=== PATIENT | male | born 1960 | race Caucasian/White ===

== ENCOUNTER 2019-10-19 12:45 | Outpatient (CLI) | payer BC ==
[2019-10-19 13:43] LABS: PARTIAL THROMBOPLASTIN TIME 25 SECONDS (22-32)
[2019-10-19 15:06] LABS: PLATELET FUNCTION (ADP) 98 SECONDS (63-104)
== END 2019-10-19 23:59 | disposition home or self-care (01) ==
LOC: LAB 12:45
PROVIDERS: ATTEND Otolaryngology
DX: J32.0 Chronic maxillary sinusitis (principal); R04.0 Epistaxis
CPT/HCPCS: 36415; 85576; 85610; 85730

== ENCOUNTER 2020-02-13 06:12 | Day surgery (SDC) | payer BC ==
[2020-02-06 14:29] LABS: BASOPHILS % (AUTO) 0.5 % (0-1); EOSINOPHILS # (AUTO) 0.3 X10'3 (0-0.9); EOSINOPHILS % (AUTO) 4.1 % (0-6); LYMPHOCYTES # (AUTO) 2.2 X10'3 (1.1-4.8); LYMPHOCYTES % (AUTO) 32.3 % (21-51); MEAN CORPUSCULAR HEMOGLOBIN 31.5 PG (27.0-31.0); MEAN CORPUSCULAR HGB CONC 33.8 g/dL (33.0-36.5); MEAN CORPUSCULAR VOLUME 93.3 FL (78-98); MEAN PLATELET VOLUME 8.4 FL (7.4-10.4); MONOCYTES # (AUTO) 0.5 X10'3 (0-0.9); MONOCYTES % (AUTO) 7.9 % (2-12); NEUTROPHILS # (AUTO) 3.7 X10'3 (1.8-7.7); NEUTROPHILS % (AUTO) 55.2 % (42-75); PRE OP HEMOGLOBIN 14.5 g/dL (14.0-17.9); PRE OP PLATELET COUNT 278 X10'3 (140-440); RED BLOOD COUNT 4.61 X10'6 (4.70-6.10)
[2020-02-06 14:38] LABS: PRE OP PROTIME 10.3 SECONDS (9.0-12.0)
[2020-02-06 14:43] LABS: ALBUMIN 4.2 G/DL (3.4-5.0); ALBUMIN/GLOBULIN RATIO 1.2 (1.1-1.5); ALKALINE PHOSPHATASE 62 IU/L (46-116); BLOOD UREA NITROGEN 10 MG/DL (7-18); BUN/CREATININE RATIO 9.8 (5.4-32.0); CALCIUM 9.2 MG/DL (8.5-10.1); CHLORIDE 106 MMOL/L (99-107); CREATININE 1.02 MG/DL (0.60-1.10); PRE OP ALT 33 U/L (30-65); PRE OP ANION GAP 5 (8-16); PRE OP AST 24 U/L (10-37); PRE OP BILIRUB, TOTAL 0.6 MG/DL (0.0-1.0); PRE OP GLUCOSE 87 MG/DL (70-104); PRE OP POTASSIUM 4.1 MMOL/L (3.4-5.1); PRE OP SODIUM 142 MMOL/L (135-145); TOTAL PROTEIN 7.6 G/DL (6.4-8.2); eGFR 74 ML/MIN
[2020-02-13] VITALS (9 sets, daily range): BP systolic 109–123; BP diastolic 70–89
[~2020-02-13] VITALS: Ht 162.6 cm; Wt 79.0 kg
[~2020-02-13 06:12] MED LIST: ALBU90AE2; DOCUMENT DATE & TIME OF BETA-BLOCKER PO ONE; DULO30CA52 PO; GABA300C PO; GALC120P IM; METO-384 PO; SUMA6CAR2 IM; TRAM50TA2 PO; famotidine 20mg tablet PO ONE; oxymetazoline 15 ML nasal spray NS ONE; ringers solution, lacted 1,000 ML IV SCH
--- NOTE | 2020-02-13 06:50 | NUR ---
PT STATES HE HAS HAD EPISODES OF DIZZINESS OVER THE LAST 3 WEEKS WITH A FALL AT HOME LAST NIGHT, DENIES ANY INJURY FROM FALL OR LOSS OF CONSCIOUSNESS. STATES ALSO FELL IN HIS OFFICE A FEW DAYS AGO. STATES HX OF DIZZINESS IN THE PAST R/T CHEMO AND OTHER MEDICATIONS. DR CARDONA AND DR WILD AWARE Addendum: 02/13/20 at 0822 by Leandra Salazar RN Amended: Links added.
[2020-02-13] MEDS ORDERED: mupirocin 2% ointment 22GM ONE (07:02)
[2020-02-13] MEDS ORDERED: cocaine 4% topical solution 4ml bottle ONE (07:02)
[2020-02-13] MEDS ORDERED: cefTAZidime 1gm inj ONE (07:02)
[2020-02-13] MEDS ORDERED: methylPREDNISolone acetate 80mg/ml inj**IM only ONE (07:02)
[2020-02-13] MEDS ORDERED: LIDOcaine 1% W/epiNEPHrine 1:100,000 20ml vial ONE (07:02)
[2020-02-13] MEDS ORDERED: oxymetazoline 15 ML nasal spray NS ONE (07:03)
[2020-02-13] MEDS ORDERED: fentaNYL /PF 50mcg/ml 5ml ampule ONE (08:12)
[2020-02-13] MEDS ORDERED: MIDAZolam 5mg/5ml vial ONE (08:12)
[2020-02-13] MEDS ORDERED: dexamethasone sod phosphate 10mg/ml inj ONE (08:12)
[2020-02-13] MEDS ORDERED: sevoflurane 250ml liquid IH ONE (08:12)
[2020-02-13] MEDS ORDERED: phenylephrine 10mg/ml inj. ONE (08:12)
[2020-02-13] MEDS ORDERED: LIDOcaine 2% (20mg/ml) 5ml vial ONE (08:27)
[2020-02-13] MEDS ORDERED: propofol inj 20 ML IV ONE (08:27)
[2020-02-13] MEDS ORDERED: ondansetron/PF 4mg/2ml inj ONE (08:28)
[2020-02-13] MEDS ORDERED: ePHEDrine 50MG/ML INJ. ONE (08:37)
[2020-02-13] MEDS ORDERED: hydrALAZINE 20mg/ml inj. IV PRN (09:00)
[2020-02-13] MEDS ORDERED: ringers solution, lacted 1,000 ML IV SCH (09:00)
[2020-02-13] MEDS ORDERED: morphine 2 MG/ML inj. syringe IV PRN (09:00)
[2020-02-13] MEDS ORDERED: enalaprilat dihydrate 2.5mg/2ml vial IV PRN (09:00)
[2020-02-13] MEDS ORDERED: ondansetron/PF 4mg/2ml inj IV PRN (09:00)
[2020-02-13] MEDS ORDERED: fentaNYL/PF 50MCG/1 ML 2ML syringe IV PRN ×2 (09:00)
[2020-02-13] MEDS ORDERED: morphine 4 MG/ML inj SYRINge IV PRN (09:00)
[2020-02-13] MEDS ORDERED: salt irrigation nasal spray 45 ML SPRAY NS PRN (09:10)
--- NOTE | 2020-02-13 09:20 | NUR ---
ADMITTED TO PACU FROM OR ACCOMPANIED BY ANESTHESIA. INTIAL PHYSICAL ASSESSMENT DONE AND RECORDED. REPORT RECEIVED FROM ANESTHESIA.
--- NOTE | 2020-02-13 10:30 | NUR ---
DISCHARGE CRITERIA MET, DISCHARGE INSTRUCTIONS GIVEN, DEMONSTRATES VERBAL UNDERSTANDING. DISCHARGED HOME IN GOOD CONDITION.
== END 2020-02-13 10:30 | disposition home or self-care (01) ==
LOC: PAS 06:12
PROVIDERS: ATTEND Otolaryngology
DX: J34.2 Deviated nasal septum (principal); J34.3 Hypertrophy of nasal turbinates; D18.09 Hemangioma of other sites; G47.30 Sleep apnea, unspecified; G43.909 Migraine, unspecified, not intractable, without status migrainosus; G89.29 Other chronic pain; E03.9 Hypothyroidism, unspecified; M19.90 Unspecified osteoarthritis, unspecified site; J45.909 Unspecified asthma, uncomplicated; E66.9 Obesity, unspecified; Z68.29 Body mass index [BMI] 29.0-29.9, adult; Z20.828 Contact with and (suspected) exposure to other viral communicable diseases; Z79.01 Long term (current) use of anticoagulants; Z79.899 Other long term (current) drug therapy; Z98.1 Arthrodesis status; Z72.89 Other problems related to lifestyle; Z88.0 Allergy status to penicillin; Z88.8 Allergy status to other drugs, medicaments and biological substances; Z98.890 Other specified postprocedural states; Z86.73 Personal history of transient ischemic attack (TIA), and cerebral infarction without residual deficits; Z95.0 Presence of cardiac pacemaker
CPT/HCPCS: 30140; 30520; 31241; 36415; 61782; 70486; 80053; 82948; 85025; 85576; 85610; 85730; 87635; 93005; A6402; C9250; C9803; J0713; J1040; J1100; J2001; J2250; J2370; J2405; J2704; J3010; J7040; J7120; A4618; A7000

== ENCOUNTER 2020-10-04 16:41 | Outpatient (CLI) | payer OTHER ==
[~2020-10-04 16:41] MED LIST changes: -ALBU90AE2; +ALBU90AE2 IH; -DOCUMENT DATE & TIME OF BETA-BLOCKER PO ONE; -famotidine 20mg tablet PO ONE; -oxymetazoline 15 ML nasal spray NS ONE; -ringers solution, lacted 1,000 ML IV SCH
== END 2020-10-04 23:59 | disposition home or self-care (01) ==
LOC: LAB 16:41
PROVIDERS: ATTEND Internal Medicine Infectious Disease
DX: Z00.00 Encounter for general adult medical examination without abnormal findings (principal)

== ENCOUNTER 2020-11-11 15:20 | Inpatient (IN) | payer BC ==
[~2020-11-11] VITALS: Ht 162.6 cm; Wt 72.0 kg
[2020-11-11 16:29] LABS: BASOPHILS % (AUTO) 0.2 % (0-1); EOSINOPHILS % (AUTO) 0.3 % (0-6); HEMATOCRIT 43.3 % (42.0-52.0); HEMOGLOBIN 14.7 g/dl (14.0-17.9); LYMPHOCYTES # (AUTO) 0.7 X10'3 (1.1-4.8); LYMPHOCYTES % (AUTO) 5.2 % (21-51); MEAN CORPUSCULAR HEMOGLOBIN 30.9 PG (27.0-31.0); MEAN CORPUSCULAR HGB CONC 34.1 g/dL (33.0-36.5); MEAN CORPUSCULAR VOLUME 90.7 FL (78-98); MONOCYTES # (AUTO) 0.5 X10'3 (0-0.9); MONOCYTES % (AUTO) 3.7 % (2-12); NEUTROPHILS # (AUTO) 12.1 X10'3 (1.8-7.7); NEUTROPHILS % (AUTO) 90.6 % (42-75); PLATELET COUNT 412 X10'3 (140-440); RED BLOOD COUNT 4.78 X10'6 (4.70-6.10); RED CELL DISTRIBUTION WIDTH 14.2 % (11.5-14.5); WHITE BLOOD COUNT 13.4 X10'3 (4.5-11.0)
[2020-11-11 16:33] LABS: D-DIMER 0.55 MG/L FEU (0-0.50)
[2020-11-11] MEDS ORDERED: normal saline 1000ml 1,000 ML IV ONE (16:35)
[2020-11-11 16:51] LABS: ALANINE AMINOTRANSFERASE 37 U/L (12-78); ALBUMIN 3.1 G/DL (3.4-5.0); ALBUMIN/GLOBULIN RATIO 0.7 (1.1-1.5); ALKALINE PHOSPHATASE 75 IU/L (46-116); ANION GAP 12 (8-16); ASPARTATE AMINO TRANSFERASE 25 U/L (10-37); BILIRUBIN,TOTAL 0.5 MG/DL (0.1-1.0); BLOOD UREA NITROGEN 18 MG/DL (7-18); BUN/CREATININE RATIO 19.1 (5.4-32.0); C-REACTIVE PROTEIN 7.51 MG/DL (0.0-0.5); CALCIUM 9.3 MG/DL (8.5-10.1); CHLORIDE 99 MMOL/L (99-107); CREATININE 0.94 MG/DL (0.60-1.10); GLUCOSE 156 MG/DL (70-104); MAGNESIUM 2.6 MG/DL (1.5-2.4); POTASSIUM 4.4 MMOL/L (3.5-5.1); SODIUM 133 MMOL/L (135-145); TOTAL CARBON DIOXIDE 21.7 MMOL/L (24-32); TOTAL PROTEIN 7.7 G/DL (6.4-8.2); eGFR 82 ML/MIN
[2020-11-11 17:04] LABS: TOTAL CELLS COUNTED 100
[2020-11-11 17:06] LABS: PLATELET ESTIMATE NORMAL
[2020-11-11] MEDS ORDERED: methylPREDNISolone sod succ/PF 40mg inj. IV ONE (18:55)
[2020-11-11] MEDS ORDERED: potassium Cl 20 mEq SR tablet PO PRN ×2 (19:05)
[2020-11-11] MEDS ORDERED: mag hydrox/Alum hydrox/simeth 30ml oral suspension PO PRN (19:05)
[2020-11-11] MEDS ORDERED: ALBUTEROL INHALER 1 PUFF/90 MCG INHALER IH PRN (19:05)
[2020-11-11] MEDS ORDERED: bisacodyl 10mg suppository rectal RC PRN (19:05)
[2020-11-11] MEDS ORDERED: potassium Cl 40MEQ/1/2NS 520ml 520 ML IV PRN ×2 (19:05)
[2020-11-11] MEDS ORDERED: morphine 2 MG/ML inj. syringe IV PRN (19:05)
[2020-11-11] MEDS ORDERED: ondansetron/PF 4mg/2ml inj IV PRN (19:05)
[2020-11-11] MEDS ORDERED: magnesium hydroxide 30ml (MOM) UD suspension PO PRN (19:05)
[2020-11-11] MEDS ORDERED: acetaminophen 325mg tablet PO PRN ×2 (19:05)
[2020-11-11] MEDS ORDERED: HYDROcodone/acetaminophen 5mg/325mg tablet PO PRN (19:05)
[2020-11-11] MEDS ORDERED: acetaminophen 650mg rectal suppository RC PRN (19:05)
[2020-11-11] MEDS ORDERED: magnesium 2GM in 50ml NS 50 ML IV PRN (19:05)
[2020-11-11] MEDS ORDERED: magnesium 4gm in 100ml NS 100 ML IV PRN (19:05)
[2020-11-11] MEDS ORDERED: magnesium Cl slow-release 64mg tablet PO PRN (19:05)
[2020-11-11] MEDS ORDERED: iohexol 350MG/ML 100ml bottle IV ONE (19:18)
[2020-11-11 19:26] LABS: HEMOGLOBIN A1C 6.2 % (4.5-6.2)
--- NOTE | 2020-11-11 21:10 | NUR ---
PT CAME UP FROM ER. PT HAS BEEN ORIENTED TO THE ROOM. VSS WITH 4L O2. RECEIVED REPORT PRIOR TO PT'S ARRIVAL.
[2020-11-11] MEDS: heparin, porcine 5000 units/ml vial SQ SCH (22:00)
[2020-11-11] MEDS: docusate sod 100mg capsule PO SCH (22:00)
[2020-11-11] MEDS: K and/or MAG REPLACEMENT MC SCH (22:00)
[2020-11-11] MEDS: morphine 2 MG/ML inj. syringe IV PRN (22:04)
[2020-11-11] MEDS: normal saline 1000ml 1,000 ML IV SCH (22:23)
[2020-11-11 23:08] LABS: COLOR,URINE YELLOW (Yellow); UA COLLECTION TYPE NON-SPECIFIED
[2020-11-11 23:09] LABS: CLARITY,URINE CLEAR (Clear); GLUCOSE, URINE NEGATIVE (Neg); KETONES,URINE NEGATIVE (Neg); NITRITES, URINE NEGATIVE (Neg); OCCULT BLOOD,URINE NEGATIVE (Neg); PROTEIN,URINE NEGATIVE (Neg); UROBILINOGEN,URINE 0.2 E.U/dL (0.2-1.0)
[2020-11-11 23:10] LABS: LEUKOCYTE ESTERASE ,URINE NEGATIVE (Neg)
[2020-11-12] MEDS ORDERED: methylPREDNISolone sod succ/PF 40mg inj. IV SCH
[2020-11-12] MEDS ORDERED: methylPREDNISolone sod succ 125mg/2ml vial IV SCH
[2020-11-12] MEDS: diphenhydrAMINE 25mg capsule PO PRN (01:03)
[2020-11-12 02:00] VITALS: BP 87/54
[2020-11-12] MEDS: morphine 2 MG/ML inj. syringe IV PRN ×3 (05:11→13:58)
--- NOTE | 2020-11-12 06:28 | NUR ---
Problems reprioritized. Patient report given, questions answered & plan of care reviewed with THOMAS MENDEZ.
[2020-11-12 06:34] VITALS: BP 98/62
--- NOTE | 2020-11-12 06:34 | NUR ---
Patient in room ORTHO 4008. I have received report from Susie GUZMAN and had the opportunity to ask questions and assume patient care.
[2020-11-12] MEDS ORDERED: DEXAMETHASONE 6 MG TABLET PO SCH (08:00)
[2020-11-12] MEDS: docusate sod 100mg capsule PO SCH ×2 (08:00→19:02)
[2020-11-12] MEDS: K and/or MAG REPLACEMENT MC SCH ×2 (08:00→19:02)
[2020-11-12 08:47] LABS: BASOPHILS % (AUTO) 0.1 % (0-1); EOSINOPHILS % (AUTO) 0.1 % (0-6); HEMATOCRIT 39.6 % (42.0-52.0); HEMOGLOBIN 13.4 g/dl (14.0-17.9); LYMPHOCYTES # (AUTO) 0.7 X10'3 (1.1-4.8); LYMPHOCYTES % (AUTO) 5.6 % (21-51); MEAN CORPUSCULAR HEMOGLOBIN 30.8 PG (27.0-31.0); MEAN CORPUSCULAR HGB CONC 33.8 g/dL (33.0-36.5); MEAN CORPUSCULAR VOLUME 91.2 FL (78-98); MONOCYTES # (AUTO) 0.5 X10'3 (0-0.9); MONOCYTES % (AUTO) 3.6 % (2-12); NEUTROPHILS # (AUTO) 12.1 X10'3 (1.8-7.7); NEUTROPHILS % (AUTO) 90.6 % (42-75); PLATELET COUNT 392 X10'3 (140-440); RED BLOOD COUNT 4.34 X10'6 (4.70-6.10); RED CELL DISTRIBUTION WIDTH 14.5 % (11.5-14.5); WHITE BLOOD COUNT 13.4 X10'3 (4.5-11.0)
[2020-11-12 09:07] LABS: ALANINE AMINOTRANSFERASE 31 U/L (12-78); ALBUMIN 2.7 G/DL (3.4-5.0); ALBUMIN/GLOBULIN RATIO 0.6 (1.1-1.5); ALKALINE PHOSPHATASE 63 IU/L (46-116); ANION GAP 9 (8-16); ASPARTATE AMINO TRANSFERASE 23 U/L (10-37); BILIRUBIN,TOTAL 0.4 MG/DL (0.1-1.0); BLOOD UREA NITROGEN 21 MG/DL (7-18); BUN/CREATININE RATIO 26.6 (5.4-32.0); CALCIUM 8.8 MG/DL (8.5-10.1); CHLORIDE 103 MMOL/L (99-107); CHOL/HDL RATIO 5.5 (0.00-4.99); CHOLESTEROL 193 MG/DL (0-200); CREATININE 0.79 MG/DL (0.60-1.10); GLUCOSE 127 MG/DL (70-104); HDL CHOLESTEROL 35 MG/DL (35-60); LDL CHOLESTEROL 127 MG/DL (50-100); MAGNESIUM 2.4 MG/DL (1.5-2.4); PHOSPHORUS 3.6 MG/DL (2.3-4.5); POTASSIUM 4.7 MMOL/L (3.5-5.1); SODIUM 137 MMOL/L (135-145); TOTAL CARBON DIOXIDE 24.7 MMOL/L (24-32); TOTAL PROTEIN 6.9 G/DL (6.4-8.2); TRIGLYCERIDES 133 MG/DL (20-135); eGFR > 90 ML/MIN
[2020-11-12 09:40] LABS: C-REACTIVE PROTEIN 3.84 MG/DL (0.0-0.5)
[2020-11-12] MEDS: methylPREDNISolone sod succ/PF 40mg inj. IV SCH ×3 (09:48→23:28)
[2020-11-12] MEDS: heparin, porcine 5000 units/ml vial SQ SCH ×2 (09:48→19:14)
--- NOTE | 2020-11-12 10:38 | NUR ---
Gave patient insentive spirometer and flutter valve and educated on use. Sputum culture received and sent to the lab
[2020-11-12 10:55] LABS: D-DIMER 0.53 MG/L FEU (0-0.50)
--- NOTE | 2020-11-12 11:08 | NUR ---
PAGER ID: [phone] MESSAGE: [phone]- please address med rec thank you. leobardo [phone]
[2020-11-12] MEDS ORDERED: DULO60CA65 PO (11:36)
[2020-11-12] MEDS ORDERED: FLUT1BLS11 INH (11:36)
[2020-11-12 13:08] VITALS: BP 119/74
[2020-11-12] MEDS: duloxetine 30mg CAPSULE.DR PO SCH (13:58)
[2020-11-12] MEDS: SUMAtriptan succ. 6 MG/0.5ml vial SQ PRN (13:58)
[2020-11-12] MEDS: normal saline 1000ml 1,000 ML IV SCH (15:12)
[2020-11-12 16:37] VITALS: BP 111/75
--- NOTE | 2020-11-12 18:50 | NUR ---
Problems reprioritized. Patient report given, questions answered & plan of care reviewed with Marta GUZMAN.
[2020-11-12] MEDS: HYDROcodone/acetaminophen 10/325mg tab PO PRN (19:12)
[2020-11-12] MEDS: traMADol 50MG tablet PO SCH (19:13)
[2020-11-12] MEDS: gabapentin 300mg capsule PO SCH (19:13)
[2020-11-12] MEDS: FLUTICASONE PROPION IH SCH (19:19)
[2020-11-12] MEDS: SALMETEROL IH SCH (19:19)
[2020-11-12] MEDS: metoprolol succinate 25mg (24-HOUR) SR. Tablet PO SCH (20:50)
[2020-11-12 22:00] VITALS: BP 109/65
[2020-11-13 02:00] VITALS: BP 102/58
--- NOTE | 2020-11-13 06:17 | NUR ---
Problems reprioritized. Patient report given, questions answered & plan of care reviewed with Radha GUZMAN.
--- NOTE | 2020-11-13 06:21 | NUR ---
Patient in room ORTHO 4008. I have received report from Marta GUZMAN and had the opportunity to ask questions and assume patient care.
[2020-11-13 06:33] VITALS: BP 103/70
[2020-11-13 07:53] LABS: BASOPHILS % (AUTO) 0.1 % (0-1); EOSINOPHILS % (AUTO) 0 % (0-6); HEMOGLOBIN 13.5 g/dl (14.0-17.9); LYMPHOCYTES # (AUTO) 0.7 X10'3 (1.1-4.8); LYMPHOCYTES % (AUTO) 4.1 % (21-51); MEAN CORPUSCULAR HGB CONC 33.7 g/dL (33.0-36.5); MEAN CORPUSCULAR VOLUME 91.9 FL (78-98); MONOCYTES # (AUTO) 0.6 X10'3 (0-0.9); MONOCYTES % (AUTO) 3.4 % (2-12); NEUTROPHILS # (AUTO) 15.1 X10'3 (1.8-7.7); NEUTROPHILS % (AUTO) 92.4 % (42-75); PLATELET COUNT 452 X10'3 (140-440); RED BLOOD COUNT 4.35 X10'6 (4.70-6.10); RED CELL DISTRIBUTION WIDTH 14.2 % (11.5-14.5); WHITE BLOOD COUNT 16.4 X10'3 (4.5-11.0)
[2020-11-13] MEDS: FLUTICASONE PROPION IH SCH ×2 (08:00→20:00)
[2020-11-13] MEDS: K and/or MAG REPLACEMENT MC SCH ×2 (08:00→20:00)
[2020-11-13] MEDS: SALMETEROL IH SCH ×2 (08:00→20:00)
[2020-11-13] MEDS: docusate sod 100mg capsule PO SCH ×2 (08:00→20:00)
[2020-11-13 08:11] LABS: ALANINE AMINOTRANSFERASE 48 U/L (12-78); ALBUMIN 2.8 G/DL (3.4-5.0); ALBUMIN/GLOBULIN RATIO 0.7 (1.1-1.5); ALKALINE PHOSPHATASE 66 IU/L (46-116); ANION GAP 10 (8-16); ASPARTATE AMINO TRANSFERASE 23 U/L (10-37); BILIRUBIN,TOTAL 0.4 MG/DL (0.1-1.0); BLOOD UREA NITROGEN 21 MG/DL (7-18); C-REACTIVE PROTEIN 1.56 MG/DL (0.0-0.5); CALCIUM 8.8 MG/DL (8.5-10.1); CHLORIDE 105 MMOL/L (99-107); CREATININE 0.75 MG/DL (0.60-1.10); GLUCOSE 120 MG/DL (70-104); LACTATE DEHYDROGENASE 153 U/L (85-227); MAGNESIUM 2.3 MG/DL (1.5-2.4); PHOSPHORUS 3.3 MG/DL (2.3-4.5); POTASSIUM 4.5 MMOL/L (3.5-5.1); SODIUM 139 MMOL/L (135-145); TOTAL CARBON DIOXIDE 24.3 MMOL/L (24-32); TOTAL PROTEIN 6.9 G/DL (6.4-8.2); eGFR > 90 ML/MIN
[2020-11-13 08:53] LABS: D-DIMER 0.59 MG/L FEU (0-0.50)
[2020-11-13] MEDS: duloxetine 30mg CAPSULE.DR PO SCH (09:20)
[2020-11-13] MEDS: heparin, porcine 5000 units/ml vial SQ SCH ×2 (09:21→19:35)
[2020-11-13] MEDS: gabapentin 300mg capsule PO SCH ×2 (09:21→19:34)
[2020-11-13] MEDS: methylPREDNISolone sod succ/PF 40mg inj. IV SCH ×2 (09:21→16:22)
[2020-11-13] MEDS: traMADol 50MG tablet PO SCH ×2 (09:21→19:34)
[2020-11-13 09:44] LABS: PLATELET ESTIMATE INCREASED; TOTAL CELLS COUNTED 100
[2020-11-13] MEDS: morphine 2 MG/ML inj. syringe IV PRN ×3 (11:02→21:49)
--- NOTE | 2020-11-13 11:06 | NUR ---
scanner on computer not scanning meds into [employer], checked med prior to admin
[2020-11-13 11:52] VITALS: BP 110/66
[2020-11-13] MEDS: normal saline 1000ml 1,000 ML IV SCH (12:04)
[2020-11-13] MEDS: HYDROcodone/acetaminophen 10/325mg tab PO PRN (14:27)
[2020-11-13 16:59] VITALS: BP 121/69
[2020-11-13 18:00] VITALS: BP 106/63
--- NOTE | 2020-11-13 18:39 | NUR ---
Problems reprioritized. Patient report given, questions answered & plan of care reviewed with Mandy GUZMAN.
[2020-11-13] MEDS: metoprolol succinate 25mg (24-HOUR) SR. Tablet PO SCH (21:00)
--- NOTE | 2020-11-13 22:55 | NUR ---
REPORT TO MELO
[2020-11-14] MEDS: methylPREDNISolone sod succ/PF 40mg inj. IV SCH ×2 (01:03→08:22)
[2020-11-14] MEDS: HYDROcodone/acetaminophen 10/325mg tab PO PRN ×2 (01:04→13:54)
[2020-11-14] MEDS: diphenhydrAMINE 25mg capsule PO PRN (01:04)
[2020-11-14 02:00] VITALS: BP 112/71
[2020-11-14 06:21] VITALS: BP 120/73
--- NOTE | 2020-11-14 06:22 | NUR ---
Patient in room ORTHO 4008. I have received report from Ngoc GUZMAN and had the opportunity to ask questions and assume patient care.
[2020-11-14] MEDS: docusate sod 100mg capsule PO SCH (08:00)
[2020-11-14] MEDS: K and/or MAG REPLACEMENT MC SCH (08:00)
[2020-11-14] MEDS: heparin, porcine 5000 units/ml vial SQ SCH (08:22)
[2020-11-14] MEDS: SALMETEROL IH SCH (08:23)
[2020-11-14] MEDS: FLUTICASONE PROPION IH SCH (08:23)
[2020-11-14] MEDS: normal saline 1000ml 1,000 ML IV SCH (08:23)
[2020-11-14] MEDS: traMADol 50MG tablet PO SCH (08:23)
[2020-11-14] MEDS: duloxetine 30mg CAPSULE.DR PO SCH (08:23)
[2020-11-14] MEDS: gabapentin 300mg capsule PO SCH (08:23)
[2020-11-14 08:27] LABS: BASOPHILS % (AUTO) 0 % (0-1); EOSINOPHILS % (AUTO) 0 % (0-6); HEMATOCRIT 39.1 % (42.0-52.0); HEMOGLOBIN 13.5 g/dl (14.0-17.9); LYMPHOCYTES # (AUTO) 0.6 X10'3 (1.1-4.8); MEAN CORPUSCULAR HEMOGLOBIN 30.9 PG (27.0-31.0); MEAN CORPUSCULAR HGB CONC 34.4 g/dL (33.0-36.5); MEAN PLATELET VOLUME 8.1 FL (7.4-10.4); MONOCYTES # (AUTO) 0.3 X10'3 (0-0.9); NEUTROPHILS # (AUTO) 10.5 X10'3 (1.8-7.7); PLATELET COUNT 424 X10'3 (140-440); RED BLOOD COUNT 4.35 X10'6 (4.70-6.10); RED CELL DISTRIBUTION WIDTH 14.5 % (11.5-14.5); WHITE BLOOD COUNT 11.5 X10'3 (4.5-11.0)
[2020-11-14 09:00] LABS: ALANINE AMINOTRANSFERASE 64 U/L (12-78); ALBUMIN 2.8 G/DL (3.4-5.0); ALBUMIN/GLOBULIN RATIO 0.7 (1.1-1.5); ALKALINE PHOSPHATASE 62 IU/L (46-116); ANION GAP 11 (8-16); ASPARTATE AMINO TRANSFERASE 23 U/L (10-37); BILIRUBIN,TOTAL 0.5 MG/DL (0.1-1.0); BLOOD UREA NITROGEN 20 MG/DL (7-18); BUN/CREATININE RATIO 25.6 (5.4-32.0); C-REACTIVE PROTEIN 0.63 MG/DL (0.0-0.5); CHLORIDE 103 MMOL/L (99-107); CREATININE 0.78 MG/DL (0.60-1.10); GLUCOSE 124 MG/DL (70-104); LACTATE DEHYDROGENASE 190 U/L (85-227); MAGNESIUM 2.2 MG/DL (1.5-2.4); PHOSPHORUS 3.4 MG/DL (2.3-4.5); POTASSIUM 4.7 MMOL/L (3.5-5.1); SODIUM 137 MMOL/L (135-145); TOTAL CARBON DIOXIDE 23.3 MMOL/L (24-32); TOTAL PROTEIN 6.8 G/DL (6.4-8.2); eGFR > 90 ML/MIN
[2020-11-14 09:08] LABS: LARGE PLATELETS FEW; PLATELET ESTIMATE NORMAL; TOTAL CELLS COUNTED 100
[2020-11-14 09:17] LABS: D-DIMER 0.54 MG/L FEU (0-0.50)
[2020-11-14] MEDS: SUMAtriptan succ. 6 MG/0.5ml vial SQ PRN (10:28)
[2020-11-14 10:36] VITALS: BP 108/73
[2020-11-14] MEDS ORDERED: PRED10TA23 PO (12:03)
[2020-11-14] MEDS ORDERED: ASPI-611 PO (12:03)
--- NOTE | 2020-11-14 13:58 | NUR ---
PAGER ID: [phone] MESSAGE: [phone] Janelle, did you talk to him about sending him with a prescription for [place] for home for his migraine? leobardo [phone]
== END 2020-11-14 15:15 | disposition home or self-care (01) | DRG 177 ==
LOC: EEVIPCON 15:21 → ER 15:21 → ED HOLD 19:07 → EDBEDREQ 20:42 → ORTHO 4S 21:31
PROVIDERS: ADMIT Family Medicine; ATTEND Family Medicine
PROC: B32T1ZZ Computerized Tomography (CT Scan) of Left Pulmonary Artery using Low Osmolar Contrast (ICD-10-PCS; principal; 2020-11-11)
PROC: B3201ZZ Computerized Tomography (CT Scan) of Thoracic Aorta using Low Osmolar Contrast (ICD-10-PCS; 2020-11-11)
PROC: B32S1ZZ Computerized Tomography (CT Scan) of Right Pulmonary Artery using Low Osmolar Contrast (ICD-10-PCS; 2020-11-11)
DX: U07.1 COVID-19 (principal); J96.01 Acute respiratory failure with hypoxia; J12.81 Pneumonia due to SARS-associated coronavirus; J44.0 Chronic obstructive pulmonary disease with (acute) lower respiratory infection; E87.2 Acidosis; E87.1 Hypo-osmolality and hyponatremia; Z66 Do not resuscitate; G62.9 Polyneuropathy, unspecified; I10 Essential (primary) hypertension; G43.909 Migraine, unspecified, not intractable, without status migrainosus; Z88.0 Allergy status to penicillin; Z88.8 Allergy status to other drugs, medicaments and biological substances; Z79.899 Other long term (current) drug therapy; Z95.0 Presence of cardiac pacemaker; Z82.49 Family history of ischemic heart disease and other diseases of the circulatory system
CPT/HCPCS: 36415; 71045; 71250; 71275; 80053; 80061; 81003; 83036; 83605; 83615; 83735; 84100; 84145; 85007; 85025; 85379; 86140; 87040; 87070; 87081; 93005; 93306; 94760; 97110; 97161; 97530; 99291; G0378; J1644; J2270; J2920; J2930; J3030; J7030; Q0163; Q9967

== ENCOUNTER 2020-11-18 07:30 | Emergency (ER) | payer BC ==
[~2020-11-18] VITALS: Ht 162.6 cm; Wt 71.4 kg
[~2020-11-18 07:30] MED LIST changes: +ASPI-611 PO; -DULO30CA52 PO; +DULO60CA65 PO; +FLUT1BLS11 INH; +PRED10TA23 PO
--- NOTE | 2020-11-18 08:05 | NUR ---
tino singletary at bedside with student pa.
[2020-11-18] MEDS ORDERED: acetaminophen 325mg tablet PO STA (08:09)
[2020-11-18] MEDS ORDERED: normal saline 1000ML IV soln IV ONE (08:10)
[2020-11-18] MEDS ORDERED: ondansetron/PF 4mg/2ml inj IV ONE (08:10)
[2020-11-18 08:45] LABS: BASOPHILS % (AUTO) 0.2 % (0-1); EOSINOPHILS % (AUTO) 0 % (0-6); HEMATOCRIT 44.6 % (42.0-52.0); HEMOGLOBIN 15.4 g/dl (14.0-17.9); LYMPHOCYTES # (AUTO) 0.7 X10'3 (1.1-4.8); LYMPHOCYTES % (AUTO) 7.4 % (21-51); MEAN CORPUSCULAR HEMOGLOBIN 31.4 PG (27.0-31.0); MEAN CORPUSCULAR HGB CONC 34.5 g/dL (33.0-36.5); MEAN CORPUSCULAR VOLUME 90.9 FL (78-98); MEAN PLATELET VOLUME 8.1 FL (7.4-10.4); MONOCYTES # (AUTO) 0.7 X10'3 (0-0.9); MONOCYTES % (AUTO) 7.3 % (2-12); NEUTROPHILS # (AUTO) 8.2 X10'3 (1.8-7.7); NEUTROPHILS % (AUTO) 85.1 % (42-75); PLATELET COUNT 369 X10'3 (140-440); RED BLOOD COUNT 4.91 X10'6 (4.70-6.10); RED CELL DISTRIBUTION WIDTH 14.1 % (11.5-14.5); WHITE BLOOD COUNT 9.7 X10'3 (4.5-11.0)
[2020-11-18 08:50] LABS: ALANINE AMINOTRANSFERASE 46 U/L (12-78); ALBUMIN 2.6 G/DL (3.4-5.0); ALBUMIN/GLOBULIN RATIO 0.7 (1.1-1.5); ALKALINE PHOSPHATASE 75 IU/L (46-116); ANION GAP 10 (8-16); ASPARTATE AMINO TRANSFERASE 23 U/L (10-37); BILIRUBIN,TOTAL 0.8 MG/DL (0.1-1.0); BLOOD UREA NITROGEN 17 MG/DL (7-18); CHLORIDE 92 MMOL/L (99-107); CREATININE 1.13 MG/DL (0.60-1.10); GLUCOSE 97 MG/DL (70-104); MAGNESIUM 1.9 MG/DL (1.5-2.4); POTASSIUM 4.2 MMOL/L (3.5-5.1); SODIUM 123 MMOL/L (135-145); TOTAL CARBON DIOXIDE 20.7 MMOL/L (24-32); TOTAL PROTEIN 6.5 G/DL (6.4-8.2); eGFR 66 ML/MIN
--- NOTE | 2020-11-18 09:05 | NUR ---
CALLED TO UPDATE ON MEDS W[facility] 500 1 PUFF x2 A DAY.
[2020-11-18] MEDS ORDERED: normal saline 1000ML IV soln IVB ONE (09:10)
[2020-11-18] MEDS ORDERED: ONDA4TAB6 PO (09:32)
[2020-11-18 10:41] VITALS: BP 106/64
[2020-11-18 11:20] LABS: CLARITY,URINE CLEAR (Clear); COLOR,URINE YELLOW (Yellow); GLUCOSE, URINE NEGATIVE (Neg); PH,URINE 5.5 (4.8-8.0); PROTEIN,URINE NEGATIVE (Neg); UA COLLECTION TYPE VOIDED
[2020-11-18 11:21] LABS: KETONES,URINE NEGATIVE (Neg); LEUKOCYTE ESTERASE ,URINE NEGATIVE (Neg); NITRITES, URINE NEGATIVE (Neg); OCCULT BLOOD,URINE NEGATIVE (Neg); UROBILINOGEN,URINE 0.2 E.U/dL (0.2-1.0)
== END 2020-11-18 11:20 | disposition home or self-care (01) ==
LOC: ER 07:31
DX: R11.2 Nausea with vomiting, unspecified (principal); R06.02 Shortness of breath; R19.7 Diarrhea, unspecified; R53.1 Weakness; E86.0 Dehydration; I25.10 Atherosclerotic heart disease of native coronary artery without angina pectoris; I10 Essential (primary) hypertension; J44.9 Chronic obstructive pulmonary disease, unspecified; F17.200 Nicotine dependence, unspecified, uncomplicated; Z98.890 Other specified postprocedural states; Z72.89 Other problems related to lifestyle; Z88.0 Allergy status to penicillin; Z88.8 Allergy status to other drugs, medicaments and biological substances; Z79.82 Long term (current) use of aspirin; Z79.899 Other long term (current) drug therapy
CPT/HCPCS: 36415; 71045; 80053; 81003; 83605; 83735; 84145; 85025; 87040; 93005; 96361; 96374; 99285; J2405; J7030; 87077

== ENCOUNTER 2020-11-21 11:46 | Inpatient (IN) | payer BC ==
[~2020-11-21] VITALS: Ht 162.6 cm; Wt 74.9 kg
[~2020-11-21 11:46] MED LIST changes: +ONDA4TAB6 PO
--- NOTE | 2020-11-21 11:55 | NUR ---
Spoke to Dr. Andersen regarding patients arrival. 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 Dr. Andersen request that I place orders for CBC, CMP, blood cultures, LA, and procalcitonin.
[2020-11-21 12:36] LABS: BASOPHILS % (AUTO) 0 % (0-1); EOSINOPHILS % (AUTO) 0.5 % (0-6); HEMATOCRIT 37.2 % (42.0-52.0); HEMOGLOBIN 12.4 g/dl (14.0-17.9); LYMPHOCYTES # (AUTO) 0.3 X10'3 (1.1-4.8); LYMPHOCYTES % (AUTO) 3.6 % (21-51); MEAN CORPUSCULAR HEMOGLOBIN 30.2 PG (27.0-31.0); MEAN CORPUSCULAR HGB CONC 33.4 g/dL (33.0-36.5); MEAN CORPUSCULAR VOLUME 90.6 FL (78-98); MONOCYTES # (AUTO) 0.4 X10'3 (0-0.9); MONOCYTES % (AUTO) 5.7 % (2-12); NEUTROPHILS # (AUTO) 6.4 X10'3 (1.8-7.7); NEUTROPHILS % (AUTO) 90.2 % (42-75); PLATELET COUNT 253 X10'3 (140-440); RED BLOOD COUNT 4.11 X10'6 (4.70-6.10); RED CELL DISTRIBUTION WIDTH 14.8 % (11.5-14.5)
[2020-11-21 12:51] LABS: ALANINE AMINOTRANSFERASE 40 U/L (12-78); ALBUMIN 2.2 G/DL (3.4-5.0); ALBUMIN/GLOBULIN RATIO 0.5 (1.1-1.5); ALKALINE PHOSPHATASE 94 IU/L (46-116); ANION GAP 8 (8-16); ASPARTATE AMINO TRANSFERASE 21 U/L (10-37); BILIRUBIN,TOTAL 0.6 MG/DL (0.1-1.0); BLOOD UREA NITROGEN 9 MG/DL (7-18); CHLORIDE 91 MMOL/L (99-107); GLUCOSE 152 MG/DL (70-104); POTASSIUM 4.2 MMOL/L (3.5-5.1); SODIUM 125 MMOL/L (135-145); TOTAL CARBON DIOXIDE 25.8 MMOL/L (24-32); TOTAL PROTEIN 6.4 G/DL (6.4-8.2); eGFR 86 ML/MIN
[2020-11-21] MEDS ORDERED: normal saline 1000ML IV soln IVB ONE (13:05)
[2020-11-21] MEDS ORDERED: sulfmethoxaz/trimethoprim inj 10 ML in dextrose 5%-water 240 ML IV SCH (14:00)
[2020-11-21] MEDS ORDERED: magnesium Cl slow-release 64mg tablet PO PRN (14:10)
[2020-11-21] MEDS ORDERED: magnesium 4gm in 100ml NS 100 ML IV PRN (14:10)
[2020-11-21] MEDS ORDERED: potassium Cl 20 mEq SR tablet PO PRN ×2 (14:10)
[2020-11-21] MEDS ORDERED: magnesium hydroxide 30ml (MOM) UD suspension PO PRN (14:10)
[2020-11-21] MEDS ORDERED: acetaminophen 325mg tablet PO PRN (14:10)
[2020-11-21] MEDS ORDERED: HYDROcodone/acetaminophen 5mg/325mg tablet PO PRN (14:10)
[2020-11-21] MEDS ORDERED: mag hydrox/Alum hydrox/simeth 30ml oral suspension PO PRN (14:10)
[2020-11-21] MEDS ORDERED: potassium Cl 40MEQ/1/2NS 520ml 520 ML IV PRN ×2 (14:10)
[2020-11-21] MEDS ORDERED: magnesium 2GM in 50ml NS 50 ML IV PRN (14:10)
[2020-11-21] MEDS ORDERED: ondansetron/PF 4mg/2ml inj IV PRN (14:10)
[2020-11-21] MEDS ORDERED: ASPI-1397 PO (14:18)
[2020-11-21] MEDS ORDERED: iohexol 300mg/ml 100ml inj. ONE (14:22)
[2020-11-21 14:34] LABS: PLATELET ESTIMATE NORMAL; TOTAL CELLS COUNTED 100
[2020-11-21] MEDS: WATER IV SCH (15:02)
[2020-11-21] MEDS: normal saline 1000ml 1,000 ML IV SCH (15:02)
[2020-11-21] MEDS: DEXTROSE IV SCH (15:02)
[2020-11-21] MEDS: SULFAMETHOX IV SCH (15:02)
[2020-11-21] MEDS: TRIMETHOPRIM IV SCH (15:02)
[2020-11-21 15:11] LABS: PARTIAL THROMBOPLASTIN TIME 31 SECONDS (22-32)
[2020-11-21] MEDS ORDERED: SUMATRIPTAN IM PRN (16:45)
[2020-11-21] MEDS ORDERED: albuterol 60 PUFF/8GM Inhaler IH PRN (16:50)
[2020-11-21] MEDS ORDERED: ALBUTEROL INHALER 1 PUFF/90 MCG INHALER IH PRN (17:00)
[2020-11-21] MEDS: docusate sod 100mg capsule PO SCH (20:00)
[2020-11-21] MEDS: gabapentin 300mg capsule PO SCH (20:00)
[2020-11-21] MEDS: SALMETEROL IH SCH (20:00)
[2020-11-21] MEDS: K and/or MAG REPLACEMENT MC SCH (20:00)
[2020-11-21] MEDS: FLUTICASONE PROPIONATE IH SCH (20:00)
[2020-11-21] MEDS: traMADol 50MG tablet PO SCH (20:00)
[2020-11-21] MEDS: metoprolol succinate 25mg (24-HOUR) SR. Tablet PO SCH (21:00)
[2020-11-21] MEDS: HYDROcodone/acetaminophen 10/325mg tab PO PRN (21:19)
[2020-11-22] MEDS: WATER IV SCH ×3 (00:32→15:30)
[2020-11-22] MEDS: SULFAMETHOX IV SCH ×3 (00:32→15:30)
[2020-11-22] MEDS: TRIMETHOPRIM IV SCH ×3 (00:32→15:30)
[2020-11-22] MEDS: DEXTROSE IV SCH ×3 (00:32→15:30)
[2020-11-22] MEDS: normal saline 1000ml 1,000 ML IV SCH ×3 (00:56→19:55)
[2020-11-22] MEDS: HYDROcodone/acetaminophen 10/325mg tab PO PRN ×4 (01:37→20:01)
[2020-11-22 05:00] VITALS: BP 91/48
--- NOTE | 2020-11-22 06:11 | NUR ---
Problems reprioritized. Patient report given, questions answered & plan of care reviewed with Jean RN .
[2020-11-22 06:59] LABS: BASOPHILS % (AUTO) 0.2 % (0-1); EOSINOPHILS % (AUTO) 0.9 % (0-6); HEMOGLOBIN 10.4 g/dl (14.0-17.9); LYMPHOCYTES # (AUTO) 0.5 X10'3 (1.1-4.8); LYMPHOCYTES % (AUTO) 10.6 % (21-51); MEAN CORPUSCULAR HEMOGLOBIN 30.5 PG (27.0-31.0); MEAN CORPUSCULAR HGB CONC 33.5 g/dL (33.0-36.5); MEAN PLATELET VOLUME 7.8 FL (7.4-10.4); MONOCYTES # (AUTO) 0.5 X10'3 (0-0.9); MONOCYTES % (AUTO) 9.8 % (2-12); NEUTROPHILS # (AUTO) 3.8 X10'3 (1.8-7.7); NEUTROPHILS % (AUTO) 78.5 % (42-75); PLATELET COUNT 205 X10'3 (140-440); RED CELL DISTRIBUTION WIDTH 14.7 % (11.5-14.5); WHITE BLOOD COUNT 4.8 X10'3 (4.5-11.0)
[2020-11-22] MEDS: gabapentin 300mg capsule PO SCH ×2 (07:19→20:02)
[2020-11-22] MEDS: duloxetine 30mg CAPSULE.DR PO SCH (07:20)
[2020-11-22] MEDS: aspirin 81mg, enteric-coated 1 TAB TABLET.DR PO SCH (07:20)
[2020-11-22] MEDS: traMADol 50MG tablet PO SCH ×2 (07:21→20:01)
[2020-11-22 07:22] VITALS: BP 85/62
[2020-11-22 07:32] LABS: ALANINE AMINOTRANSFERASE 36 U/L (12-78); ALBUMIN 1.8 G/DL (3.4-5.0); ALBUMIN/GLOBULIN RATIO 0.5 (1.1-1.5); ALKALINE PHOSPHATASE 74 IU/L (46-116); ANION GAP 9 (8-16); ASPARTATE AMINO TRANSFERASE 19 U/L (10-37); BILIRUBIN,TOTAL 0.3 MG/DL (0.1-1.0); BLOOD UREA NITROGEN 7 MG/DL (7-18); BUN/CREATININE RATIO 7.1 (5.4-32.0); CALCIUM 7.5 MG/DL (8.5-10.1); CHLORIDE 102 MMOL/L (99-107); CREATININE 0.98 MG/DL (0.60-1.10); GLUCOSE 111 MG/DL (70-104); MAGNESIUM 2.8 MG/DL (1.5-2.4); PHOSPHORUS 1.9 MG/DL (2.3-4.5); POTASSIUM 4.1 MMOL/L (3.5-5.1); SODIUM 136 MMOL/L (135-145); TOTAL PROTEIN 5.4 G/DL (6.4-8.2); eGFR 78 ML/MIN
[2020-11-22] MEDS: docusate sod 100mg capsule PO SCH ×2 (08:00→20:00)
[2020-11-22] MEDS: FLUTICASONE PROPIONATE IH SCH ×2 (08:00→20:00)
[2020-11-22] MEDS ORDERED: enoxaparin 40mg/0.4ml syringe SUBCUT SCH (08:00)
[2020-11-22] MEDS: K and/or MAG REPLACEMENT MC SCH ×2 (08:00→20:00)
[2020-11-22] MEDS: SALMETEROL IH SCH ×2 (08:00→20:00)
[2020-11-22 11:32] VITALS: BP 95/62
--- NOTE | 2020-11-22 11:39 | NUR ---
PAGER ID: [phone] MESSAGE: [phone] Cat- States pressure in chest. Alexa [phone]
[2020-11-22 14:48] VITALS: BP 93/69
[2020-11-22 18:00] VITALS: BP 103/58
--- NOTE | 2020-11-22 19:44 | NUR ---
Patient in room PCU 3008. I have received report from Alexa GUZMAN and had the opportunity to ask questions and assume patient care.
[2020-11-22] MEDS: lactobacillus rhamnosus 10,000 MMU CELLS/CAPSULE PO SCH (19:59)
[2020-11-22] MEDS: metoprolol succinate 25mg (24-HOUR) SR. Tablet PO SCH ×2 (21:00→23:00)
[2020-11-22 22:00] VITALS: BP 91/59
[2020-11-23] VITALS (7 sets, daily range): BP systolic 98–119; BP diastolic 8–63
[2020-11-23] MEDS: TRIMETHOPRIM IV SCH ×4 (01:31→23:57)
[2020-11-23] MEDS: WATER IV SCH ×4 (01:31→23:57)
[2020-11-23] MEDS: DEXTROSE IV SCH ×4 (01:31→23:57)
[2020-11-23] MEDS: SULFAMETHOX IV SCH ×4 (01:31→23:57)
[2020-11-23] MEDS: HYDROcodone/acetaminophen 10/325mg tab PO PRN ×4 (01:32→23:23)
[2020-11-23] MEDS: normal saline 1000ml 1,000 ML IV SCH ×3 (02:05→18:06)
[2020-11-23] MEDS: SUMAtriptan succ. 6 MG/0.5ml vial SQ PRN ×2 (03:08→23:58)
[2020-11-23 07:06] LABS: BASOPHILS % (AUTO) 0.3 % (0-1); EOSINOPHILS # (AUTO) 0.1 X10'3 (0-0.9); EOSINOPHILS % (AUTO) 2.3 % (0-6); HEMATOCRIT 33.3 % (42.0-52.0); LYMPHOCYTES # (AUTO) 0.9 X10'3 (1.1-4.8); LYMPHOCYTES % (AUTO) 19.6 % (21-51); MEAN CORPUSCULAR HEMOGLOBIN 30.3 PG (27.0-31.0); MEAN CORPUSCULAR HGB CONC 33.1 g/dL (33.0-36.5); MEAN CORPUSCULAR VOLUME 91.4 FL (78-98); MONOCYTES # (AUTO) 0.4 X10'3 (0-0.9); MONOCYTES % (AUTO) 8.7 % (2-12); NEUTROPHILS # (AUTO) 3.3 X10'3 (1.8-7.7); NEUTROPHILS % (AUTO) 69.1 % (42-75); PLATELET COUNT 256 X10'3 (140-440); RED BLOOD COUNT 3.64 X10'6 (4.70-6.10); RED CELL DISTRIBUTION WIDTH 14.8 % (11.5-14.5); WHITE BLOOD COUNT 4.7 X10'3 (4.5-11.0)
[2020-11-23 07:30] LABS: ALANINE AMINOTRANSFERASE 39 U/L (12-78); ALBUMIN 1.9 G/DL (3.4-5.0); ALBUMIN/GLOBULIN RATIO 0.5 (1.1-1.5); ALKALINE PHOSPHATASE 77 IU/L (46-116); ANION GAP 14 (8-16); ASPARTATE AMINO TRANSFERASE 19 U/L (10-37); BILIRUBIN,TOTAL 0.3 MG/DL (0.1-1.0); BLOOD UREA NITROGEN 4 MG/DL (7-18); BUN/CREATININE RATIO 4.4 (5.4-32.0); CALCIUM 7.4 MG/DL (8.5-10.1); CHLORIDE 103 MMOL/L (99-107); CREATININE 0.91 MG/DL (0.60-1.10); GLUCOSE 71 MG/DL (70-104); MAGNESIUM 2.6 MG/DL (1.5-2.4); POTASSIUM 3.5 MMOL/L (3.5-5.1); SODIUM 140 MMOL/L (135-145); TOTAL CARBON DIOXIDE 22.9 MMOL/L (24-32); TOTAL PROTEIN 5.8 G/DL (6.4-8.2); eGFR 85 ML/MIN
[2020-11-23] MEDS: SALMETEROL IH SCH ×2 (08:00→20:00)
[2020-11-23] MEDS: K and/or MAG REPLACEMENT MC SCH ×2 (08:00→20:00)
[2020-11-23] MEDS: FLUTICASONE PROPIONATE IH SCH ×2 (08:00→20:00)
[2020-11-23] MEDS: docusate sod 100mg capsule PO SCH ×2 (08:00→20:00)
--- NOTE | 2020-11-23 08:14 | NUR ---
Problems reprioritized. Patient report given, questions answered & plan of care reviewed with Alexa GUZMAN.
[2020-11-23] MEDS: duloxetine 30mg CAPSULE.DR PO SCH (09:21)
[2020-11-23] MEDS: lactobacillus rhamnosus 10,000 MMU CELLS/CAPSULE PO SCH ×2 (09:21→23:22)
[2020-11-23] MEDS: aspirin 81mg, enteric-coated 1 TAB TABLET.DR PO SCH (09:21)
[2020-11-23] MEDS: gabapentin 300mg capsule PO SCH ×2 (09:21→23:22)
[2020-11-23] MEDS: traMADol 50MG tablet PO SCH ×2 (09:22→23:22)
--- NOTE | 2020-11-23 18:56 | NUR ---
Problems reprioritized. Patient report given, questions answered & plan of care reviewed with Fadia GUZMAN.
--- NOTE | 2020-11-23 19:17 | NUR ---
Patient in room PCU 3008. I have received report from Alexa GUZMAN and had the opportunity to ask questions and assume patient care.
[2020-11-23] MEDS: metoprolol succinate 25mg (24-HOUR) SR. Tablet PO SCH (23:22)
[2020-11-23] MEDS: diatr meglu/diatrizoate 30ml oral sol.-(3 dose) bottle PO SCH (23:23)
[2020-11-24 02:00] VITALS: BP 107/57
[2020-11-24] MEDS: normal saline 1000ml 1,000 ML IV SCH ×4 (03:00→23:45)
[2020-11-24] MEDS: HYDROcodone/acetaminophen 10/325mg tab PO PRN (04:10)
--- NOTE | 2020-11-24 06:51 | NUR ---
Patient in room PCU 3008. I have received report from Fadia GUZMAN and had the opportunity to ask questions and assume patient care.
[2020-11-24 07:06] LABS: BASOPHILS % (AUTO) 0.2 % (0-1); EOSINOPHILS # (AUTO) 0.1 X10'3 (0-0.9); EOSINOPHILS % (AUTO) 2.5 % (0-6); HEMATOCRIT 29.7 % (42.0-52.0); HEMOGLOBIN 10.2 g/dl (14.0-17.9); LYMPHOCYTES # (AUTO) 0.7 X10'3 (1.1-4.8); MEAN CORPUSCULAR HEMOGLOBIN 30.9 PG (27.0-31.0); MEAN CORPUSCULAR HGB CONC 34.5 g/dL (33.0-36.5); MEAN CORPUSCULAR VOLUME 89.6 FL (78-98); MEAN PLATELET VOLUME 7.1 FL (7.4-10.4); MONOCYTES # (AUTO) 0.4 X10'3 (0-0.9); MONOCYTES % (AUTO) 7.2 % (2-12); NEUTROPHILS # (AUTO) 4.4 X10'3 (1.8-7.7); NEUTROPHILS % (AUTO) 77.1 % (42-75); PLATELET COUNT 261 X10'3 (140-440); RED BLOOD COUNT 3.31 X10'6 (4.70-6.10); RED CELL DISTRIBUTION WIDTH 15.1 % (11.5-14.5); WHITE BLOOD COUNT 5.7 X10'3 (4.5-11.0)
[2020-11-24] MEDS: diatr meglu/diatrizoate 30ml oral sol.-(3 dose) bottle PO SCH ×2 (07:31→10:07)
[2020-11-24] MEDS: FLUTICASONE PROPIONATE IH SCH ×2 (08:00→20:00)
[2020-11-24] MEDS: K and/or MAG REPLACEMENT MC SCH ×2 (08:00→20:00)
[2020-11-24] MEDS: SALMETEROL IH SCH ×2 (08:00→20:00)
[2020-11-24] MEDS: lactobacillus rhamnosus 10,000 MMU CELLS/CAPSULE PO SCH ×2 (08:00→20:39)
[2020-11-24 08:04] LABS: ALANINE AMINOTRANSFERASE 42 U/L (12-78); ALBUMIN 1.9 G/DL (3.4-5.0); ALBUMIN/GLOBULIN RATIO 0.5 (1.1-1.5); ALKALINE PHOSPHATASE 73 IU/L (46-116); ANION GAP 10 (8-16); ASPARTATE AMINO TRANSFERASE 19 U/L (10-37); BILIRUBIN,TOTAL 0.3 MG/DL (0.1-1.0); BLOOD UREA NITROGEN 3 MG/DL (7-18); BUN/CREATININE RATIO 3.7 (5.4-32.0); CALCIUM 7.4 MG/DL (8.5-10.1); CHLORIDE 104 MMOL/L (99-107); CREATININE 0.82 MG/DL (0.60-1.10); GLUCOSE 85 MG/DL (70-104); MAGNESIUM 2.4 MG/DL (1.5-2.4); PHOSPHORUS 2.8 MG/DL (2.3-4.5); POTASSIUM 3.8 MMOL/L (3.5-5.1); SODIUM 138 MMOL/L (135-145); TOTAL CARBON DIOXIDE 24.3 MMOL/L (24-32); TOTAL PROTEIN 5.5 G/DL (6.4-8.2); eGFR > 90 ML/MIN
--- NOTE | 2020-11-24 08:16 | NUR ---
Problems reprioritized. Patient report given, questions answered & plan of care reviewed with Jordana GUZMAN.
[2020-11-24] MEDS: DEXTROSE IV SCH ×2 (08:42→17:13)
[2020-11-24] MEDS: TRIMETHOPRIM IV SCH ×2 (08:42→17:13)
[2020-11-24] MEDS: SULFAMETHOX IV SCH ×2 (08:42→17:13)
[2020-11-24] MEDS: WATER IV SCH ×2 (08:42→17:13)
[2020-11-24 08:52] VITALS: BP 101/60
[2020-11-24] MEDS: docusate sod 100mg capsule PO SCH ×2 (08:58→20:39)
[2020-11-24] MEDS: gabapentin 300mg capsule PO SCH ×2 (08:59→20:40)
[2020-11-24] MEDS: aspirin 81mg, enteric-coated 1 TAB TABLET.DR PO SCH (08:59)
[2020-11-24] MEDS: duloxetine 30mg CAPSULE.DR PO SCH (08:59)
[2020-11-24] MEDS: traMADol 50MG tablet PO SCH ×2 (08:59→20:40)
[2020-11-24] MEDS ORDERED: iohexol 300mg/ml 100ml inj. ONE (10:07)
[2020-11-24 10:22] VITALS: BP 105/57
[2020-11-24] MEDS: acetaminophen 325mg tablet PO PRN (14:00)
--- NOTE | 2020-11-24 14:54 | NUR ---
Paged Dr. Watts PAGER ID: [phone] MESSAGE: CRISELDA Rico RN ext [phone]. RE: Caroline Shelton. Patient has been having migraine. His Imitrex is every 24 hours, not due until tonight. Can we increase the frequency?
--- NOTE | 2020-11-24 15:54 | NUR ---
Paged Dr. Watts PCU Trisha RN ext [phone]. RE: Caroline Shelton. Just FYI, patient CT scan abdomen result is in for your review.
--- NOTE | 2020-11-24 18:36 | NUR ---
Problems reprioritized. Patient report given, questions answered & plan of care reviewed with Rosalio GUZMAN.
[2020-11-24 19:00] VITALS: BP 105/60
[2020-11-24] MEDS: metoprolol succinate 25mg (24-HOUR) SR. Tablet PO SCH (20:39)
[2020-11-24] MEDS: temazepam 15mg capsule PO PRN (20:48)
[2020-11-24 22:00] VITALS: BP 100/61
[2020-11-25] MEDS: TRIMETHOPRIM IV SCH ×3 (00:39→16:25)
[2020-11-25] MEDS: DEXTROSE IV SCH ×3 (00:39→16:25)
[2020-11-25] MEDS: SULFAMETHOX IV SCH ×3 (00:39→16:25)
[2020-11-25] MEDS: WATER IV SCH ×3 (00:39→16:25)
[2020-11-25 02:00] VITALS: BP 98/59
--- NOTE | 2020-11-25 04:46 | NUR ---
PT WITH STAEDY GAIT AND BRP VOIDS WITHIN NORMAL LIMITS.
[2020-11-25] MEDS: HYDROcodone/acetaminophen 10/325mg tab PO PRN (05:24)
--- NOTE | 2020-11-25 05:59 | NUR ---
PT VOIDS WNL Addendum: 11/25/20 at 0559 by Saleem Galvan RN Amended: Links added.
[2020-11-25 06:00] VITALS: BP 106/62
[2020-11-25 06:04] LABS: BASOPHILS # (AUTO) 0.1 X10'3 (0-0.2); BASOPHILS % (AUTO) 0.9 % (0-1); EOSINOPHILS # (AUTO) 0.2 X10'3 (0-0.9); EOSINOPHILS % (AUTO) 2.9 % (0-6); HEMOGLOBIN 10.4 g/dl (14.0-17.9); LYMPHOCYTES # (AUTO) 1.2 X10'3 (1.1-4.8); LYMPHOCYTES % (AUTO) 18.8 % (21-51); MEAN CORPUSCULAR HEMOGLOBIN 30.4 PG (27.0-31.0); MEAN CORPUSCULAR HGB CONC 33.6 g/dL (33.0-36.5); MEAN CORPUSCULAR VOLUME 90.3 FL (78-98); MEAN PLATELET VOLUME 7.4 FL (7.4-10.4); MONOCYTES # (AUTO) 0.4 X10'3 (0-0.9); MONOCYTES % (AUTO) 6.8 % (2-12); NEUTROPHILS # (AUTO) 4.3 X10'3 (1.8-7.7); NEUTROPHILS % (AUTO) 70.6 % (42-75); PLATELET COUNT 293 X10'3 (140-440); RED BLOOD COUNT 3.43 X10'6 (4.70-6.10); RED CELL DISTRIBUTION WIDTH 14.9 % (11.5-14.5); WHITE BLOOD COUNT 6.1 X10'3 (4.5-11.0)
[2020-11-25 06:15] LABS: D-DIMER 1.82 MG/L FEU (0-0.50)
[2020-11-25 06:22] LABS: ALANINE AMINOTRANSFERASE 42 U/L (12-78); ALBUMIN/GLOBULIN RATIO 0.5 (1.1-1.5); ALKALINE PHOSPHATASE 78 IU/L (46-116); ANION GAP 9 (8-16); ASPARTATE AMINO TRANSFERASE 17 U/L (10-37); BILIRUBIN,TOTAL 0.4 MG/DL (0.1-1.0); BLOOD UREA NITROGEN 4 MG/DL (7-18); BUN/CREATININE RATIO 4.9 (5.4-32.0); CALCIUM 7.6 MG/DL (8.5-10.1); CHLORIDE 102 MMOL/L (99-107); CREATININE 0.82 MG/DL (0.60-1.10); GLUCOSE 81 MG/DL (70-104); MAGNESIUM 2.2 MG/DL (1.5-2.4); PHOSPHORUS 2.5 MG/DL (2.3-4.5); POTASSIUM 4.1 MMOL/L (3.5-5.1); SODIUM 134 MMOL/L (135-145); TOTAL CARBON DIOXIDE 23.3 MMOL/L (24-32); TOTAL PROTEIN 5.8 G/DL (6.4-8.2); eGFR > 90 ML/MIN
--- NOTE | 2020-11-25 06:57 | NUR ---
Problems reprioritized. Patient report given, questions answered & plan of care reviewed with GLENIS. Addendum: 11/25/20 at 0657 by Saleem Galvan RN Amended: Links added.
--- NOTE | 2020-11-25 07:00 | NUR ---
Patient in room PCU 3008. I have received report from Rosalio GUZMAN and had the opportunity to ask questions and assume patient care.
[2020-11-25] MEDS: SALMETEROL IH SCH ×2 (08:00→20:00)
[2020-11-25] MEDS: K and/or MAG REPLACEMENT MC SCH ×2 (08:00→20:00)
[2020-11-25] MEDS: FLUTICASONE PROPIONATE IH SCH ×2 (08:00→20:00)
[2020-11-25] MEDS: lactobacillus rhamnosus 10,000 MMU CELLS/CAPSULE PO SCH ×2 (09:33→20:12)
[2020-11-25] MEDS: traMADol 50MG tablet PO SCH ×2 (09:34→20:10)
[2020-11-25] MEDS: gabapentin 300mg capsule PO SCH ×2 (09:34→20:12)
[2020-11-25] MEDS: docusate sod 100mg capsule PO SCH ×2 (09:34→20:12)
[2020-11-25] MEDS: duloxetine 30mg CAPSULE.DR PO SCH (09:34)
[2020-11-25] MEDS: aspirin 81mg, enteric-coated 1 TAB TABLET.DR PO SCH (09:35)
[2020-11-25] MEDS: normal saline 1000ml 1,000 ML IV SCH ×2 (09:35→20:13)
[2020-11-25 11:01] VITALS: BP 108/60
[2020-11-25] MEDS: acetaminophen 325mg tablet PO PRN ×2 (12:56→20:12)
[2020-11-25 15:00] VITALS: BP 108/52
--- NOTE | 2020-11-25 18:00 | NUR ---
Patient in room PCU 3008. I have received report from THOMAS Angulo and had the opportunity to ask questions and assume patient care.
--- NOTE | 2020-11-25 18:08 | NUR ---
Pt refused need for Imitrex for headaches throughout this shift after education of pain management and pt verbalizing understanding. Tylenol given per pt request with good results. Will continue to monitor.
--- NOTE | 2020-11-25 18:28 | NUR ---
Problems reprioritized. Patient report given, questions answered & plan of care reviewed with Karol GUZMAN.
--- NOTE | 2020-11-25 18:54 | NUR ---
Patient in room PCU 3008. I have received report from Adele GUZMAN and had the opportunity to ask questions and assume patient care.
[2020-11-25] MEDS: metoprolol succinate 25mg (24-HOUR) SR. Tablet PO SCH (20:11)
[2020-11-25] MEDS: temazepam 15mg capsule PO PRN (20:13)
[2020-11-25 20:33] VITALS: BP 105/64
[2020-11-25] MEDS ORDERED: sulfamethoxazole/trimethoprim DS (800/160mg) tablet PO SCH ×2 (21:00)
[2020-11-26] VITALS: BP 98/59
[2020-11-26] MEDS: normal saline 1000ml 1,000 ML IV SCH ×2 (02:05→05:48)
--- NOTE | 2020-11-26 06:00 | NUR ---
Patient in room PCU 3008. I have received report from Karol GUZMAN and had the opportunity to ask questions and assume patient care.
--- NOTE | 2020-11-26 06:21 | NUR ---
Problems reprioritized. Patient report given, questions answered & plan of care reviewed with Ngoc GUZMAN.
--- NOTE | 2020-11-26 06:21 | NUR ---
Problems reprioritized. Patient report given, questions answered & plan of care reviewed with THOMAS Grossman.
[2020-11-26 07:44] LABS: BASOPHILS % (AUTO) 0.3 % (0-1); EOSINOPHILS # (AUTO) 0.1 X10'3 (0-0.9); EOSINOPHILS % (AUTO) 1.6 % (0-6); HEMATOCRIT 31.1 % (42.0-52.0); HEMOGLOBIN 10.4 g/dl (14.0-17.9); LYMPHOCYTES % (AUTO) 14.1 % (21-51); MEAN CORPUSCULAR HEMOGLOBIN 30.4 PG (27.0-31.0); MEAN CORPUSCULAR HGB CONC 33.4 g/dL (33.0-36.5); MEAN PLATELET VOLUME 7.1 FL (7.4-10.4); MONOCYTES # (AUTO) 0.6 X10'3 (0-0.9); MONOCYTES % (AUTO) 7.8 % (2-12); NEUTROPHILS # (AUTO) 5.4 X10'3 (1.8-7.7); NEUTROPHILS % (AUTO) 76.2 % (42-75); PLATELET COUNT 281 X10'3 (140-440); RED BLOOD COUNT 3.42 X10'6 (4.70-6.10)
[2020-11-26] MEDS: SALMETEROL IH SCH (08:00)
[2020-11-26] MEDS: FLUTICASONE PROPIONATE IH SCH (08:00)
[2020-11-26] MEDS ORDERED: sulfamethoxazole/trimethoprim DS (800/160mg) tablet PO SCH ×2 (08:00→21:00)
[2020-11-26] MEDS: K and/or MAG REPLACEMENT MC SCH (08:00)
[2020-11-26 08:14] LABS: ALANINE AMINOTRANSFERASE 36 U/L (12-78); ALBUMIN 1.9 G/DL (3.4-5.0); ALBUMIN/GLOBULIN RATIO 0.5 (1.1-1.5); ALKALINE PHOSPHATASE 80 IU/L (46-116); ANION GAP 10 (8-16); ASPARTATE AMINO TRANSFERASE 15 U/L (10-37); BILIRUBIN,TOTAL 0.4 MG/DL (0.1-1.0); BLOOD UREA NITROGEN 6 MG/DL (7-18); BUN/CREATININE RATIO 7.6 (5.4-32.0); CALCIUM 7.7 MG/DL (8.5-10.1); CHLORIDE 102 MMOL/L (99-107); CREATININE 0.79 MG/DL (0.60-1.10); GLUCOSE 86 MG/DL (70-104); MAGNESIUM 2.4 MG/DL (1.5-2.4); PHOSPHORUS 2.2 MG/DL (2.3-4.5); POTASSIUM 4.4 MMOL/L (3.5-5.1); SODIUM 134 MMOL/L (135-145); TOTAL CARBON DIOXIDE 21.9 MMOL/L (24-32); TOTAL PROTEIN 5.7 G/DL (6.4-8.2); eGFR > 90 ML/MIN
[2020-11-26 09:00] VITALS: BP 112/61
[2020-11-26] MEDS: duloxetine 30mg CAPSULE.DR PO SCH (09:05)
[2020-11-26] MEDS: docusate sod 100mg capsule PO SCH (09:06)
[2020-11-26] MEDS: aspirin 81mg, enteric-coated 1 TAB TABLET.DR PO SCH (09:06)
[2020-11-26] MEDS: lactobacillus rhamnosus 10,000 MMU CELLS/CAPSULE PO SCH (09:07)
[2020-11-26] MEDS: gabapentin 300mg capsule PO SCH (09:07)
[2020-11-26] MEDS: traMADol 50MG tablet PO SCH (09:07)
[2020-11-26] MEDS ORDERED: SULF1TAB45 PO ×2 (11:22)
[2020-11-26] MEDS ORDERED: LACT1CAP26 PO (11:22)
--- NOTE | 2020-11-26 13:11 | NUR ---
Patient was educated on follow-up care, medications, activity, and worsening symptoms. Patient was provided with lab order slip and instructed to start the weekly blood draws. IV was removed and canula was intact. Patient's new prescriptions were sent to [facility] on [address]. Patient was taken down by tech to his ride.
== END 2020-11-26 12:50 | disposition home or self-care (01) | DRG 871 ==
LOC: ER 11:47 → ED HOLD 14:15 → PCU 3S 20:05
PROVIDERS: ADMIT Family Medicine; ATTEND Family Medicine
PROC: BW211ZZ Computerized Tomography (CT Scan) of Abdomen and Pelvis using Low Osmolar Contrast (ICD-10-PCS; principal; 2020-11-24)
DX: A32.7 Listerial sepsis (principal); J96.00 Acute respiratory failure, unspecified whether with hypoxia or hypercapnia; U07.1 COVID-19; J12.82 Pneumonia due to coronavirus disease 2019; J44.0 Chronic obstructive pulmonary disease with (acute) lower respiratory infection; F43.10 Post-traumatic stress disorder, unspecified; G43.909 Migraine, unspecified, not intractable, without status migrainosus; G89.29 Other chronic pain; I95.9 Hypotension, unspecified; I10 Essential (primary) hypertension; I25.10 Atherosclerotic heart disease of native coronary artery without angina pectoris; D64.9 Anemia, unspecified; F32.A Depression, unspecified; I48.91 Unspecified atrial fibrillation; K52.9 Noninfective gastroenteritis and colitis, unspecified; Z86.16 Personal history of COVID-19; Z88.0 Allergy status to penicillin; Z95.0 Presence of cardiac pacemaker; Z88.8 Allergy status to other drugs, medicaments and biological substances
CPT/HCPCS: 36415; 70470; 71045; 74177; 80053; 83605; 83735; 83930; 84100; 84145; 84484; 85007; 85025; 85379; 85610; 85730; 87040; 87045; 87046; 87077; 89055; 92508; 92616; 93005; 93308; 94760; 97116; 97161; 97530; 99285; G0378; J2405; J3030; J3490; J7030; J7060; Q9963; Q9967

== ENCOUNTER 2022-02-11 05:49 | Day surgery (SDC) | payer BC ==
[2022-02-09 15:00] LABS: BASOPHILS % (AUTO) 0.5 % (0-1); EOSINOPHILS # (AUTO) 0.4 X10'3 (0-0.9); EOSINOPHILS % (AUTO) 5.4 % (0-6); LYMPHOCYTES # (AUTO) 1.6 X10'3 (1.1-4.8); LYMPHOCYTES % (AUTO) 21.3 % (21-51); MEAN CORPUSCULAR HEMOGLOBIN 30.4 PG (27.0-31.0); MEAN CORPUSCULAR HGB CONC 33.2 g/dL (33.0-36.5); MEAN CORPUSCULAR VOLUME 91.7 FL (78-98); MEAN PLATELET VOLUME 8.4 FL (7.4-10.4); MONOCYTES # (AUTO) 0.7 X10'3 (0-0.9); MONOCYTES % (AUTO) 9.2 % (2-12); NEUTROPHILS # (AUTO) 4.8 X10'3 (1.8-7.7); NEUTROPHILS % (AUTO) 63.6 % (42-75); PRE OP HEMATOCRIT 40.9 % (42.0-52.0); PRE OP HEMOGLOBIN 13.6 g/dL (14.0-17.9); PRE OP PLATELET COUNT 266 X10'3 (140-440); RED BLOOD COUNT 4.46 X10'6 (4.70-6.10); RED CELL DISTRIBUTION WIDTH 14.7 % (11.5-14.5)
[2022-02-09 15:09] LABS: CLARITY,URINE CLEAR (Clear); COLOR,URINE YELLOW (Yellow); UA COLLECTION TYPE CLN CATCH MIDSTREAM
[2022-02-09 15:10] LABS: GLUCOSE, URINE NEGATIVE (Neg); KETONES,URINE NEGATIVE (Neg); LEUKOCYTE ESTERASE ,URINE NEGATIVE (Neg); NITRITES, URINE NEGATIVE (Neg); OCCULT BLOOD,URINE NEGATIVE (Neg); PROTEIN,URINE NEGATIVE (Neg); UROBILINOGEN,URINE 0.2 E.U/dL (0.2-1.0)
[2022-02-09 15:13] LABS: ALBUMIN 3.9 G/DL (3.4-5.0); ALBUMIN/GLOBULIN RATIO 1.2 (1.1-1.5); ALKALINE PHOSPHATASE 67 IU/L (46-116); BLOOD UREA NITROGEN 15 MG/DL (7-18); BUN/CREATININE RATIO 15.3 (5.4-32.0); CHLORIDE 103 MMOL/L (99-107); CREATININE 0.98 MG/DL (0.60-1.10); PRE OP ALT 21 U/L (30-65); PRE OP ANION GAP 6 (8-16); PRE OP AST 24 U/L (10-37); PRE OP BILIRUB, TOTAL 0.3 MG/DL (0.0-1.0); PRE OP GLUCOSE 92 MG/DL (70-104); PRE OP POTASSIUM 4.3 MMOL/L (3.4-5.1); PRE OP SODIUM 138 MMOL/L (135-145); TOTAL CARBON DIOXIDE 28.9 MMOL/L (24-32); TOTAL PROTEIN 7.2 G/DL (6.4-8.2); eGFR 78 ML/MIN
[~2022-02-11] VITALS: Ht 162.6 cm; Wt 73.9 kg
[2022-02-11] VITALS (18 sets, daily range): BP systolic 109–140; BP diastolic 61–88
[~2022-02-11 05:49] MED LIST changes: -ASPI-611 PO; +CETI-194 PO; +DIPH25CA83 PO; -DULO60CA65 PO; -GALC120P IM; +IBUP-1986 PO; +LEVO50TA8 PO; -METO-384 PO; +MULT-1085 PO; +OMEP20CA16 PO; -ONDA4TAB6 PO; -PRED10TA23 PO; -SUMA6CAR2 IM; +SUMA6CAR6 IM; +[UNRECOGNIZED DRUG - OTHER] PO; +albuterol 2.5 MG/3 ML nebule NEB ONE; +clindamycin-Cleocin 900mg/D5W 50 ML IV ONE; +famotidine 20mg tablet PO ONE; +ringers solution, lacted 1,000 ML IV SCH
[2022-02-11] MEDS ORDERED: BUPIVAcaine 0.5% inj/PF 30 ML ONE (07:23)
[2022-02-11] MEDS ORDERED: midazolam 1 mg/ML 2ml injection ONE (07:45)
[2022-02-11] MEDS ORDERED: FENTANYL CITRATE/PF 50 MCG/1 ML VIAL ONE (07:45)
[2022-02-11] MEDS ORDERED: LIDOcaine 2% (20mg/ml) 5ml vial ONE (07:46)
[2022-02-11] MEDS ORDERED: dexamethasone sod phosphate 4mg/ml inj. ONE (07:46)
[2022-02-11] MEDS ORDERED: propofol inj 20 ML IV ONE (07:46)
[2022-02-11] MEDS ORDERED: glycopyrrolate 0.2mg/ml inj ONE (07:47)
[2022-02-11] MEDS ORDERED: neostigmine methylsulfate 1 MG/ML 10ml vial ONE ×2 (07:47→07:55)
[2022-02-11] MEDS ORDERED: rocuronium 10mg/ml inj IV ONE ×2 (07:47→09:27)
[2022-02-11] MEDS ORDERED: ondansetron/PF 4mg/2ml inj ONE (07:47)
[2022-02-11] MEDS ORDERED: ondansetron/PF 4mg/2ml inj IV PRN (07:55)
[2022-02-11] MEDS ORDERED: fentaNYL/PF 50MCG/1 ML 2ML syringe IV PRN (07:55)
[2022-02-11] MEDS ORDERED: morphine 2 MG/ML inj. syringe IV PRN (07:55)
[2022-02-11] MEDS ORDERED: sevoflurane 250ml liquid IH ONE (07:55)
[2022-02-11] MEDS ORDERED: ringers solution, lacted 1,000 ML IV SCH (07:55)
[2022-02-11] MEDS ORDERED: hydrALAZINE 20mg/ml inj. IV PRN (07:55)
[2022-02-11] MEDS ORDERED: labetalol 20mg/4ml (5mg/ml) syringe IV PRN (07:55)
[2022-02-11] MEDS ORDERED: BUPIVACAINE liposomal/PF 13.3 MG/ML vial IM ONE (08:21)
[2022-02-11] MEDS ORDERED: BUPIVAcaine/PF 5 mg/ml 10ml ONE (08:21)
[2022-02-11] MEDS ORDERED: sugammadex 200mg/2ml injection IV ONE (09:16)
--- NOTE | 2022-02-11 10:20 | NUR ---
Received from OR via [facility], accompanied by Anesthesiologist DR WILD and report given by Anesthesiolgist. PT PRESENT MICHAEL PIV 20G RIGHT HAND, ABD DRESSING DERMABSACHIN WILSON. PT PAIN 10/01. PT MEDICATED FOR ABD PAIN 10/01. Addendum: 02/11/22 at 1035 by Alix Boo RN, RN Amended: Links added.
[2022-02-11] MEDS: morphine 4 MG/ML inj SYRINge IV PRN ×3 (10:27→10:47)
[2022-02-11] MEDS ORDERED: traMADol 50MG tablet PO ONE (10:55)
[2022-02-11] MEDS: fentaNYL/PF 50MCG/1 ML 2ML syringe IV PRN ×2 (11:06→11:13)
[2022-02-11] MEDS ORDERED: HYDROmorphone/PF 0.2 MG/ML SYRINGE IV PRN (12:10)
--- NOTE | 2022-02-11 12:44 | NUR ---
PT IS SITTING UP ON THE SIDE OF THE BED. PT REPORTS HE FEELS BETTER THIS WAY. PT EATING ICE CHIPS.
--- NOTE | 2022-02-11 13:20 | NUR ---
ALL DISCHARGE CRITERIA HAS BEEN MET. VSS, PAIN AT A TOLERABLE LEVEL, VOIDING AND ABLE TO SAFELY AMBULATE AND TRANSFER SELF. IV TAKEN OUT WITHOUT ANY COMPLICATIONS. ALL DISCHARGE INSTRUCTIONS COVERED WITH PATIENT AND ALL QUESTIONS ANSWERED. PATIENT TAKEN OUT VIA WHEELCHAIR TO PERSONAL VEHICLE WHERE FAMILY/FRIEND DROVE PATIENT HOME. Addendum: 02/11/22 at 1409 by Alix Boo RN, RN Amended: Links added.
== END 2022-02-11 13:20 | disposition home or self-care (01) ==
LOC: PAS 05:49
PROVIDERS: ATTEND Surgery
DX: K42.9 Umbilical hernia without obstruction or gangrene (principal); K43.9 Ventral hernia without obstruction or gangrene; G89.18 Other acute postprocedural pain; E03.9 Hypothyroidism, unspecified; G43.909 Migraine, unspecified, not intractable, without status migrainosus; M19.90 Unspecified osteoarthritis, unspecified site; K21.9 Gastro-esophageal reflux disease without esophagitis; Z98.890 Other specified postprocedural states; Z88.0 Allergy status to penicillin; Z79.899 Other long term (current) drug therapy; Z88.8 Allergy status to other drugs, medicaments and biological substances
CPT/HCPCS: 36415; 49652; 64488; 80053; 81003; 82948; 85025; C1781; C9290; J1100; J2250; J2270; J2405; J2704; J3010; J3490; J7030; J7120; S0020; Z7506; Z7508; Z7512; A4615; A4618; A7000; J2710

== ENCOUNTER 2022-03-17 08:25 | Day surgery (SDC) | payer BC ==
[2022-03-17] VITALS (15 sets, daily range): BP systolic 95–127; BP diastolic 62–80
[~2022-03-17] VITALS: Ht 165.1 cm; Wt 71.7 kg
[~2022-03-17 08:25] MED LIST changes: +LIDOcaine 1% 30ml preserv. free vial ONE; -albuterol 2.5 MG/3 ML nebule NEB ONE; -clindamycin-Cleocin 900mg/D5W 50 ML IV ONE; +cocaine 4% topical solution 4ml bottle ONE; +epiNEPHrine 1 mg/ml inj ONE; +methylPREDNISolone acetate 80mg/ml inj**IM only ONE; +mupirocin 2% ointment 22GM ONE; +oxymetazoline 15 ML nasal spray NS ONE; +tranexamic acid 100mg/ml inj. ONE
--- NOTE | 2022-03-17 09:08 | NUR ---
Received from OR via [facility], accompanied by Anesthesiologist DR OROZCO and report given by Anesthesiologist AND EDI ARCHITECT. PT VERY DROWSY, NO S/S OF DISTRESS/DISCOMFORT. NO DRSG'S. VSS. Addendum: 03/17/22 at 1054 by Sara Navarrete RN TIME RECEIVED IN PACU 10:42, NOT 0908. Addendum: 03/17/22 at 1100 by Sara Navarrete RN Amended: Links added.
[2022-03-17] MEDS ORDERED: sevoflurane 250ml liquid IH ONE (09:51)
[2022-03-17] MEDS ORDERED: fentaNYL/PF 50MCG/1 ML 2ML syringe ONE (09:57)
[2022-03-17] MEDS ORDERED: midazolam 1 mg/ML 2ml injection ONE (09:57)
[2022-03-17] MEDS ORDERED: propofol inj 20 ML IV ONE (09:59)
[2022-03-17] MEDS ORDERED: LIDOcaine 1% w/EPI 1:100,000 30ml vial (MDV) IJ ONE (10:19)
[2022-03-17] MEDS ORDERED: enalaprilat dihydrate 2.5mg/2ml vial IV PRN (10:30)
[2022-03-17] MEDS ORDERED: proCHLORperazine 10 MG/2 ml inj IV PRN (10:30)
[2022-03-17] MEDS ORDERED: ondansetron/PF 4mg/2ml inj IV PRN (10:30)
[2022-03-17] MEDS ORDERED: labetalol 20mg/4ml (5mg/ml) syringe IV PRN (10:30)
[2022-03-17] MEDS ORDERED: morphine 2 MG/ML inj. syringe IV PRN (10:30)
[2022-03-17] MEDS ORDERED: ringers solution, lacted 1,000 ML IV SCH (10:30)
[2022-03-17] MEDS ORDERED: morphine 4 MG/ML inj SYRINge IV PRN (10:30)
[2022-03-17] MEDS ORDERED: meperidine/PF 25mg/ml syringe IV PRN ×3 (10:30)
[2022-03-17] MEDS ORDERED: dexamethasone sod phosphate 4mg/ml inj. ONE (10:31)
[2022-03-17] MEDS ORDERED: ondansetron/PF 4mg/2ml inj ONE (10:31)
[2022-03-17] MEDS ORDERED: salt irrigation nasal spray 45 ML SPRAY NS PRN (11:45)
[2022-03-17] MEDS ORDERED: oxymetazoline 15 ML nasal spray NS PRN (11:45)
[2022-03-17] MEDS ORDERED: mupirocin 2% nasal ointment 1gm UD NS SCH (13:00)
--- NOTE | 2022-03-17 13:12 | NUR ---
PT UP AND ABLE TO AMBULATE SAFELY, VOIDED LARGE AMT, D/C INSTRUCTIONS GIVEN AND GONE OVER W/PT WHO VERBALIZED AND DEMONSTRATED UNDERSTANDING. PT D/CD TO HOME VIA W/C TO PRIVATE VEHICLE W/O INCIDENT. Addendum: 03/17/22 at 1330 by Sara Navarrete RN Amended: Links added.
== END 2022-03-17 13:12 | disposition home or self-care (01) ==
LOC: PAS 08:25
PROVIDERS: ATTEND Otolaryngology
DX: J34.2 Deviated nasal septum (principal); D14.0 Benign neoplasm of middle ear, nasal cavity and accessory sinuses; J45.909 Unspecified asthma, uncomplicated; E03.9 Hypothyroidism, unspecified; G43.909 Migraine, unspecified, not intractable, without status migrainosus; K21.9 Gastro-esophageal reflux disease without esophagitis; G89.29 Other chronic pain; Z20.822 Contact with and (suspected) exposure to COVID-19; Z98.1 Arthrodesis status; Z72.89 Other problems related to lifestyle; Z95.0 Presence of cardiac pacemaker; Z86.73 Personal history of transient ischemic attack (TIA), and cerebral infarction without residual deficits; Z98.890 Other specified postprocedural states; Z88.0 Allergy status to penicillin; Z88.2 Allergy status to sulfonamides; Z88.8 Allergy status to other drugs, medicaments and biological substances; Z79.899 Other long term (current) drug therapy
CPT/HCPCS: 30520; 36415; 82948; 87635; 93005; A6402; C9803; J0171; J1100; J2250; J2405; J2704; J3010; J3490; J7030; J7120; U0003; Z7506; Z7512; A4618; A6449; A7000; J1040